=== PATIENT | female | born 1945 | race Caucasian/White ===

== ENCOUNTER 2017-12-27 08:45 | Emergency (ER) | payer MEDICARE, OTHER ==
--- NOTE | 2017-12-27 09:28 | EDM.PDOC ---
ED HPI GENERAL MEDICAL PROBLEM - General Chief Complaint: General Stated Complaint: N/V, intermittent dizziness Time Seen by Provider: 12/27/17 09:18 Source of Information: Reports: Patient History Limitations: Reports: No Limitations - History of Present Illness INITIAL COMMENTS - FREE TEXT/NARRATIVE: States that when she woke up this AM she was very dizzy with the room spinning in circles. She was nauseated and did vomit when she arrived here per [facility]. Since arriving here she does feel better with less spinning but it still feels off balance. nausea is much better. Prefers to have eyes closed as she feels better. No other discomfort noted. No diarrhea with it. Onset: Sudden Location: Reports: Head Worsens with: Reports: Movement Associated Symptoms: Reports: Nausea/Vomiting Upper Back Pain Score (Numeric/FACES): 0 - Related Data Allergies Allergy/AdvReac Type Severity Reaction Status Date / Time Penicillins Allergy Cannot Verified 12/27/17 08:47 Remember Home Meds: Home Meds Aspirin [Halfprin] 325 mg PO DAILY 05/21/13 [History] Calcium Carb/D3/Magnesium/Zinc [Angel Mag Zinc + D Tablet] 2 each PO DAILY [History] Alendronate Sodium 70 mg PO SA 12/27/17 [History] Ascorbic Acid [Vitamin C] 500 mg PO DAILY 12/27/17 [History] Cholecalciferol (Vitamin D3) [Vitamin D3] 1,000 unit PO DAILY 12/27/17 [History] Magnesium 250 mg PO DAILY 12/27/17 [History] Past Medical History HEENT History: Reports: None Cardiovascular History: Reports: None Respiratory History: Reports: None Gastrointestinal History: Reports: None, Diverticulosis Genitourinary History: Reports: Other (See Below) Other Genitourinary History: nocturia DAM WORKER History: Reports: None, Other (See Below) Other DAM WORKER History: breast reduction Musculoskeletal History: Reports: Arthritis, Other (See Below) Other Musculoskeletal History: osteopenia Neurological History: Reports: None Endocrine/Metabolic History: Reports: None, Osteoporosis Dermatologic History: Reports: None - Past Surgical History HEENT Surgical History: Reports: None Cardiovascular Surgical History: Reports: None Respiratory Surgical History: Reports: None GI Surgical History: Reports: Cholecystectomy Female Surgical History: Reports: Breast Reconstruction Neurological Surgical History: Reports: Lumbar Spine Social & Family History - Family History Family Medical History: Noncontributory - Tobacco Use Smoking Status *Q: Never Smoker - Recreational Drug Use Recreational Drug Use: No - Living Situation & Occupation Living situation: Reports: , with Significant Other Occupation: Retired ED ROS GENERAL - Review of Systems Review Of Systems: See Below Constitutional: Denies: Fever, Chills HEENT: Reports: Vertigo Respiratory: Reports: No Symptoms Cardiovascular: Reports: No Symptoms GI/Abdominal: Reports: Nausea, Vomiting. Denies: Constipation, Diarrhea : Reports: No Symptoms Musculoskeletal: Reports: No Symptoms Skin: Reports: No Symptoms Neurological: Reports: Dizziness. Denies: Syncope, Difficulty Walking ED EXAM, GENERAL - Physical Exam Exam: See Below Exam Limited By: No Limitations General Appearance: Alert, WD/WN, Mild Distress Eye Exam: Bilateral Eye: PERRL Ears: Normal External Exam, Normal Canal, Normal TMs Nose: Normal Inspection Throat/Mouth: Normal Inspection, Normal Oropharynx, Normal Voice, No Airway Compromise Head: Atraumatic, Normocephalic Neck: Normal Inspection, Supple, Non-Tender Respiratory/Chest: No Respiratory Distress, Lungs Clear, Normal Breath Sounds Cardiovascular: Regular Rate, Rhythm, No Edema, No Murmur GI/Abdominal: Normal Bowel Sounds, Soft, Non-Tender Extremities: Normal Inspection, Normal Capillary Refill Neurological: Alert, Oriented Skin Exam: Warm, Dry, Intact EKG INTERPRETATION EKG Date: 12/27/17 Rhythm: NSR QRS: RBBB Comparison: No Change Course - Vital Signs Last Recorded V/S: Last Vital Signs Temp 96.4 F 12/27/17 08:46 Pulse 76 12/27/17 08:46 Resp 20 12/27/17 08:46 BP 154/92 H 12/27/17 08:46 Pulse Ox 97 12/27/17 08:46 - Orders/Labs/Meds Orders: Active Orders 24 hr Category Date Time Status COMPREHENSIVE METABOLIC PN,CMP [CHEM] Stat Lab 12/27/17 09:14 Received CREATINE KINASE,CK [CHEM] Stat Lab 12/27/17 09:14 Received LACTATE DEHYDROGENASE,LDH [CHEM] Stat Lab 12/27/17 09:14 Received TROPONIN I [CHEM] Stat Lab 12/27/17 09:14 Received Labs: Laboratory Tests 12/27/17 Range/Units 09:14 WBC 7.3 (5.0-10.0) 10^3/uL RBC 4.63 (4.00-5.50) 10^6/uL Hgb 13.8 (12.0-16.0) g/dL Hct 41.6 (37.0-47.0) % MCV 89.8 (82.0-94.0) fL MCH 29.8 (27.0-32.0) pg MCHC 33.2 (33.0-38.0) g/dL RDW Coeff of Janeen 14.9 (11.0-15.0) % Plt Count 221 (150-400) 10^3/uL Neut % (Auto) 63.3 (35-85) % Lymph % (Auto) 28.9 (10-55) % [place] % (Auto) 6.7 (0-16) % Eos % (Auto) 1.0 (0-5) % Baso % (Auto) 0.1 (0-3) % Neut # (Auto) 4.63 (1.80-7.00) 10^3/uL Lymph # (Auto) 2.11 (1.00-4.80) 10^3/uL [place] # (Auto) 0.49 (0.00-0.80) 10^3/uL Eos # (Auto) 0.07 (0.00-0.45) 10^3/uL Baso # (Auto) 0.01 10^3/uL Departure - Departure Time of Disposition: 09:41 Disposition: Home, Self-Care 01 Condition: Good Clinical Impression: Vertigo - Discharge Information Instructions: Vertigo, [id number] Referrals: Roberto Dos Santos MD [Primary Care Provider] - Additional Instructions: Will have PT appt for canolith repositioning after leaving ER. Go directly to Physical thearapy department Follow up as needed. Follow recommendations of PT after there treatment zofran to use as needed every 6 hours for any nausea - Problem List & Annotations (1) Vertigo SNOMED Code(s): 050805733 Code(s): R42 - DIZZINESS AND GIDDINESS Status: Acute Priority: High Current Visit: Yes - My Orders Last 24 Hours: My Active Orders 12/27/17 09:14 COMPREHENSIVE METABOLIC PN,CMP [CHEM] Stat CREATINE KINASE,CK [CHEM] Stat LACTATE DEHYDROGENASE,LDH [CHEM] Stat TROPONIN I [CHEM] Stat - Assessment/Plan Last 24 Hours: My Active Orders 12/27/17 09:14 COMPREHENSIVE METABOLIC PN,CMP [CHEM] Stat CREATINE KINASE,CK [CHEM] Stat LACTATE DEHYDROGENASE,LDH [CHEM] Stat TROPONIN I [CHEM] Stat
[2017-12-27 09:33] LABS: CHLORIDE,CL 108 mEq/L (98-106); SODIUM,NA 138 mEq/L (136-145)
[2017-12-27 09:34] VITALS: BP 144/73
[2017-12-27] MEDS: Ondansetron 4 MG Tab.DIS PO ONE (09:36)
== END 2017-12-27 10:05 | disposition home or self-care (01) ==
LOC: CC.ED 08:45
DX: R42 Dizziness and giddiness (principal); R11.2 Nausea with vomiting, unspecified; Z88.0 Allergy status to penicillin; Z79.82 Long term (current) use of aspirin; Z79.899 Other long term (current) drug therapy
CPT/HCPCS: 36415; 80053; 82550; 83615; 84484; 85025; 93005; 99284; A9270-GY